=== PATIENT | male | born 1990 | race Caucasian/White ===

== ENCOUNTER 2023-01-20 09:03 | Emergency (ER) | payer MEDICAID, SELFPAY ==
--- NOTE | ~2023-01-20 | US_ITS ---
EXAMINATION: US ABDOMEN LIMITED CLINICAL INFORMATION: Postprandial pain. COMPARISON: None available. TECHNIQUE: Real-time imaging of the right upper quadrant abdominal viscera. FINDINGS: PANCREAS: Most of the pancreas obscured by overlying gas. LIVER: The liver is enlarged in size measuring 22.1 cm.. The liver contour is normal. Parenchymal echogenicity is increased. No focal hepatic lesion. There is no intrahepatic biliary duct dilatation seen. GALLBLADDER: Gallbladder wall thickness measures 0.27).. The gallbladder is physiologically distended without evidence of stones, sludge, polyps, wall thickening or pericholecystic fluid. COMMON BILE DUCT: Normal in caliber measuring 0.82 cm in diameter. The CBD is limited in visualization. RIGHT KIDNEY: Normal. No hydronephrosis. No renal calculi or focal parenchymal lesions. The kidney measures 12.1 cm in maximum dimension. FREE FLUID: None. US/US abdomen limited IMPRESSION: 1. Mild hepatomegaly with mild hepatic steatosis. No focal lesion seen. 2. Visualized gallbladder, CBD and right kidney is unremarkable. 3. Pancreas is mostly obscured by overlying gas.
[2023-01-20 09:07] VITALS: BP 169/92; PULSE 80; RESP 19; TEMP 36.6; O2SAT 95; BMI 54.2
--- NOTE | 2023-01-20 09:37 | ED_ITS ---
HPI - Abdominal Pain General Chief Complaint: Abdominal Pain Stated Complaint: Bacterial infection Time Seen by Provider: 01/20/23 09:21 Source: patient Mode of arrival: ambulatory Limitations: no limitations History of Present Illness HPI narrative: 32-year-old male with history of morbid obesity presents to the ER for evaluation of periumbilical abdominal pain along with nausea and 2-3 episodes of watery diarrhea for the last 5 days. He states he also has been having belching episodes where the taste is similar to sulfur. He feels like he may have a bacterial infection like H pylori. He denies a history of the same. He denies any vomiting. He denies any recent travel or any recent antibiotics. He states the abdominal pain comes and goes and it is in the middle of his lower abdomen. He denies any blood in his stool. He denies any fever or chills. MD elicited complaint: abdominal pain Pertinent past history: none Onset (ago): day(s) (5) Pain Consistency: intermittent Location: periumbilical Severity: moderate Quality: aching Radiation: none Migration to: no migration Exacerbating factors: nothing Relieving factors: nothing Associated symptoms: nausea and diarrhea Related Data Previous Rx's Medication Instructions Recorded ondansetron 4 mg disintegrating 4 mg PO Q8H PRN nausea and 01/20/23 tablet vomiting #10 tabs pantoprazole 40 mg tablet,delayed 40 mg PO DAILY #30 tabs 01/20/23 release (Protonix) Allergies Allergy/AdvReac Type Severity Reaction Status Date / Time No Known Allergies Allergy Verified 01/20/23 09:07 [No Known Allergies*] Review of Systems Review of Systems Yes all other systems are reviewed and are negative [facility] Social History Social History Advance Directives: No Advance Directives Information Provided: Yes Physical Exam ED Vital Signs: Vital Signs - 24 hr 01/20/23 09:07 01/20/23 12:00 Temperature 98 F Pulse Rate 80 67 Respiratory Rate 19 Blood Pressure 169/92 H 120/66 Pulse Oximetry 95 95 Oxygen Delivery Method Room Air Room Air BMI result Body Mass Index 54.2 Appearance: Alert. Oriented X3. No acute distress. Head: normocephalic, atraumatic. Eyes: Pupils equal, round and reactive to light. ENT: Pharynx normal. No tonsillar swelling or exudate. Neck: Normal inspection. Neck supple. CVS: Normal heart rate and rhythm. Pulses normal. Respiratory: No respiratory distress. Breath sounds normal. Abdomen: Morbidly obese, Soft and nontender. +BS x4 Skin: Skin warm and dry. Normal skin color. Normal skin turgor. No rashes. Extremities: No lower extremity edema. No joint swelling. Neuro/psych: Oriented X 3. No motor deficit. No sensory deficit. CN II-XII intact. Normal speech and cognition. Medical Decision Making Medical Decision Making [facility] Narrative: 32-year-old morbidly obese male presents to the ER for evaluation central abdomi nal pains, episodes of diarrhea and nausea along with foul tasting bruits. He has concern for H pylori. He has no epigastric tenderness. His lab work today is unremarkable. Abdomen is nontender. Ultrasound of his right upper quadrant was performed as he later stated that his pain was mostly postprandial and he did report right upper quadrant pain at times. This was unremarkable. Unlikely biliary colic. At this time patient is stable for discharge home. Will start PPI, dietary modifications and have follow-up with his PCP and GI if symptoms persist. Stable for discharge. Patient agrees with plan. Differential Diagnosis Differential Diagnoses: The differential diagnosis associated with the presentation includes Gastroenteritis, diverticulitis, appendicitis, UTI, cholecystitis, biliary colic, IBS Lab Data [facility] Lab Attestation statement: I reviewed the patient's lab results. Mild transaminitis, otherwise unremarkable. 01/20/23 10:05 01/20/23 10:05 Labs: Lab Results 01/20/23 01/20/23 01/20/23 Range/Units 10:05 10:05 12:52 WBC 10.6 (4.8-10.8) X10*3/uL RBC 5.39 (4.60-5.80) X10*6/uL Hgb 14.9 (14.0-18.0) g/dl Hct 45.8 (42.0-52.0) % MCV 85.0 (80.0-98.0) fL MCH 27.6 (27.0-33.0) pg MCHC 32.5 (31.0-36.0) g/dl RDW 13.8 (11.0-16.0) % Plt Count 267 (160-400) X10*3/uL MPV 9.2 L (9.4-12.4) fL Immature Gran % (Auto) 0.6 H (0.0-0.4) % Neut % (Auto) 77.1 H (45-73) % Lymph % (Auto) 13.3 L (20-40) % [place] % (Auto) 5.4 (2-11) % Eos % (Auto) 3.3 (0-4) % Baso % (Auto) 0.3 (0-2) % Lymph # (Auto) 1.4 (1.2-4.9) X10*3/uL [place] # (Auto) 0.6 (0.1-1.2) X10*3/uL Eos # (Auto) 0.4 (0.0-0.4) X10*3/uL Baso # (Auto) 0.0 (0.0-0.2) X10*3/uL Abs Immat Gran (auto) 0.06 H (0.00-0.03) X10*3/uL Absolute Neuts (auto) 8.2 (2.0-8.3) x10*3/uL Absolute Nucleated RBC 0.000 (0.0-0.012) X10*3/uL Nucleated RBC % (auto) 0.0 (0.0-0.2) /100WBC Sodium 141 (135-145) mmol/L Potassium 4.0 (3.3-5.1) mmol/L Chloride 108 (96-108) mmol/L Carbon Dioxide 24 (22-29) mmol/L Anion Gap 13 (12-20) BUN 11 (9-16) mg/dL Creatinine 0.87 (0.5-1.4) mg/dL Estim Creat Clear Calc 209.2 Estimated GFR > 60 Random Glucose 96 (60-115) mg/dL Calcium 9.0 (8.4-10.2) mg/dL Magnesium 1.8 (1.6-2.6) mg/dL Total Bilirubin 0.6 (0.0-1.0) mg/dL Direct Bilirubin 0.2 (0.0-0.5) mg/dL AST 40 H (5-37) U/L ALT 50 H (0-40) U/L Alkaline Phosphatase 90 (39-117) U/L Total Protein 6.5 (6.5-8.0) g/dL Albumin 3.9 (3.5-5.0) g/dL Lipase 11 (8-78) U/L Urine Color Dark Yellow Urine Appearance Clear Urine pH 6.0 (5.0-9.0) Ur Specific [place] 1.025 (1.005-1.025) Urine Protein Negative (Neg-Trace) mg/dL Urine Glucose (UA) Negative (Negative) mg/dL Urine Ketones Trace (Negative) mg/dL Urine Blood Negative (Negative) Urine Nitrite Negative (Negative) Ur Leukocyte Esterase Negative (Negative) Independent Interpretation I performed an independent interpretation of an: Ultrasound Interpretation: No visualized gallstones, no gallbladder wall thickening. Agree w/ radiologist read Radiology Impression Discussion of test interpretation with radiology: I have reviewed the radiologist's reading. Radiologist Impression: US/US abdomen limited IMPRESSION: 1.? Mild hepatomegaly with mild hepatic steatosis. No focal lesion seen. 2.? Visualized gallbladder, CBD and right kidney is unremarkable. 3.? Pancreas is mostly obscured by overlying gas. ? Prescription Management I considered prescription management with: Pain Medication and Antibiotic Medications Administered Discontinued Medications Generic Name Dose Route Start Last Admin Trade Name Freq PRN Reason Stop Dose Admin Sodium Chloride 1,000 mls @ 999 mls/hr 01/20/23 09:30 01/20/23 11:20 Ns IVCONT 01/20/23 10:30 Infused .Q1H1M MARLENE Infusion Critical Care Time Critical Care Time Critical Care Time: No Discharge Plan Discharge Clinical Impression: Abdominal pain Patient Disposition: Home, Self-Care Instructions: Abdominal Pain (ED) Additional Instructions: Your lab workup was unremarkable. Your ultrasound did not show any causes of your pain. Recommend starting the prescribed antacid medication. Recommend following up with your primary care doctor and GI specialist for further evaluation if no improvement with dietary modifications and the new medication. If you develop new or worsening symptoms call 911 or come back to the ER for further evaluation. Prescriptions: New pantoprazole [Protonix] 40 mg tablet,delayed release (DR/EC) 40 mg PO DAILY Qty: 30 0RF ondansetron 4 mg tablet,disintegrating 4 mg PO Q8H PRN (Reason: nausea and vomiting) Qty: 10 0RF Referrals: [facility] Group] Jailene Ochoa NP [Primary Care Provider] -
[2023-01-20 10:10] LABS: MANUAL DIFF FLAG NO
[2023-01-20] MEDS: 0.9 % Sodium Chloride 1,000 ML 999 ML IVCONT (10:11)
[2023-01-20 10:19] LABS: Basophils Percent Auto 0.3 % (0-2); Eosinophils Absolute Auto 0.4 X10*3/uL (0.0-0.4); Eosinophils Percent Auto 3.3 % (0-4); Hematocrit 45.8 % (42.0-52.0); Hemoglobin 14.9 g/dl (14.0-18.0); Imm Gran Abs Auto 0.06 X10*3/uL (0.00-0.03); Imm Gran Pct Auto 0.6 % (0.0-0.4); Lymphocytes Absolute Auto 1.4 X10*3/uL (1.2-4.9); Lymphocytes Percent Auto 13.3 % (20-40); Mean Corpuscular HGB Conc 32.5 g/dl (31.0-36.0); Mean Corpuscular Hemoglobin 27.6 pg (27.0-33.0); Mean Platelet Volume 9.2 fL (9.4-12.4); Monocytes Absolute Auto 0.6 X10*3/uL (0.1-1.2); Monocytes Percent Auto 5.4 % (2-11); Neutrophils Absolute Auto 8.2 x10*3/uL (2.0-8.3); Neutrophils Percent Auto 77.1 % (45-73); Platelet Count 267 X10*3/uL (160-400); Red Blood Count 5.39 X10*6/uL (4.60-5.80); Red Cell Distribution Width 13.8 % (11.0-16.0); White Blood Count 10.6 X10*3/uL (4.8-10.8)
[2023-01-20 10:30] LABS: Alanine Aminotransferase 50 U/L (0-40); Albumin Level 3.9 g/dL (3.5-5.0); Alkaline Phosphatase 90 U/L (39-117); Anion Gap 13 (12-20); Aspartate Amino Transferase 40 U/L (5-37); Bilirubin Direct 0.2 mg/dL (0.0-0.5); Bilirubin Total 0.6 mg/dL (0.0-1.0); Blood Urea Nitrogen 11 mg/dL (9-16); Carbon Dioxide 24 mmol/L (22-29); Chloride 108 mmol/L (96-108); Creatinine Clr Calc Pharmacy 209.2; Estimated Glomerular Filt Rate > 60; Glucose Random 96 mg/dL (60-115); Lipase 11 U/L (8-78); Magnesium 1.8 mg/dL (1.6-2.6); Sodium 141 mmol/L (135-145); Total Protein 6.5 g/dL (6.5-8.0)
[2023-01-20 12:00] VITALS: BP 120/66; PULSE 67; O2SAT 95
[2023-01-20 13:12] LABS: Appearance Urine Clear; Color Urine Dark Yellow; Glucose Urine UA Negative (Negative); Leukocyte Esterase Urine Negative (Negative); Nitrite Urine Negative (Negative); Specific Gravity - Urine 1.025 (1.005-1.025); Urine Blood Negative (Negative); Urine Ketones Trace mg/dL (Negative); Urine Protein Negative (Neg-Trace)
== END 2023-01-20 14:37 | disposition home or self-care (01) ==
PROVIDERS: Physician Assistant; Emergency Provider Emergency Medicine; PCP Nurse Practitioner Primary Care
DX: R10.30 Lower abdominal pain, unspecified (principal); R11.2 Nausea with vomiting, unspecified; R19.7 Diarrhea, unspecified; Z79.899 Other long term (current) drug therapy
CPT/HCPCS: 36415; 76705; 80048; 80076; 81003; 83690; 83735; 85025; 96360; 99284